=== PATIENT | female | born 1990 | race Caucasian/White ===

== ENCOUNTER 2017-07-14 11:56 | Emergency (ER) | payer OTHER ==
[~2017-07-14] VITALS: Ht 165.1 cm; Wt 117.1 kg
[2017-07-14 12:01] VITALS: TEMP 37.9; Ht 165.1 cm; Wt 117.1 kg
[2017-07-14] MEDS ORDERED: ONDANSETRON INJ 2 MG/ML 2 ML VIAL IV STA (12:26)
[2017-07-14] MEDS ORDERED: ACETAMINOPHEN 500 MG TAB PO STA (12:26)
[2017-07-14] MEDS ORDERED: SODIUM CHLORIDE 0.9% 1000ML 1,000 ML IV STA ×2 (12:26)
[2017-07-14] MEDS ORDERED: KETOROLAC TROMETHAMINE 30 MG/ML VIAL IV STA (12:26)
[2017-07-14 13:08] LABS: BASO % 0.2 %; BASO ABS # 0.02 K/uL (0-0.2); EOS ABS # 0.23 K/uL (0-0.5); HEMATOCRIT 44.4 % (37-47); IG# 0.07 K/uL (0.00-0.02); LYMPH % 14.9 %; LYMPH ABS # 1.68 K/uL (1.2-3.4); MEAN CELL VOLUME 91.9 fL (80-100); MEAN CORPUSCULAR HEMOGLOBIN 31.1 pg (25-34); MEAN CORPUSCULAR HGB CONC 33.8 g/dl (32-36); MEAN PLATELET VOLUME 10.2 fL (7.4-10.4); MONO % 5.9 %; MONO ABS # 0.66 K/uL (0.11-0.59); NEUT % 76.4 %; NEUT ABS # 8.62 K/uL (1.4-6.5); PLATELET COUNT 204 K/uL (130-400); RED CELL DISTRIBUTION WIDTH CV 13.1 % (11.5-14.5); RED CELL DISTRIBUTION WIDTH SD 43.6 fL (36.4-46.3); WHITE BLOOD COUNT 11.28 K/uL (4.8-10.8)
[2017-07-14 13:19] LABS: ALBUMIN 3.3 gm/dl (3.4-5.0); CALCIUM 8.9 mg/dl (8.5-10.1); CREATININE 0.71 mg/dl (0.60-1.20); POTASSIUM 3.5 mmol/L (3.5-5.1)
[2017-07-14 13:22] LABS: TOTAL PROTEIN 7.8 gm/dl (6.4-8.2)
[2017-07-14] MEDS ORDERED: CEFTRIAXONE SOD INJ 1 GM ADDVIAL IV STA (13:24)
--- NOTE | 2017-07-14 13:34 | DIAGNOSTIC IMAGING REPORT ---
CHEST 2 VIEWS ROUTINE CLINICAL HISTORY: BACK PAIN AND FEVER COMPARISON STUDY: No previous studies for comparison. FINDINGS: The cardiac and mediastinal contours are normal. There is no evidence of focal pulmonary consolidation. There is no evidence of failure. No pleural effusions are visualized.[ IMPRESSION: No active disease in the chest. Electronically signed by: Freddie Reynolds M.D. 07/14/2017 1:32 PM Dictated Date/Time: 07/14/2017 1:32 PM
[2017-07-14] MEDS ORDERED: OPTIRAY 320 IV PRN (13:45)
--- NOTE | 2017-07-14 14:17 | DIAGNOSTIC IMAGING REPORT ---
ABD/PELVIS IV CONTRAST ONLY CLINICAL HISTORY: 26 years-old Female presenting with EVAL PYELO/STONE, back pain, vomiting, fever, UTI. TECHNIQUE: Multidetector CT of the abdomen and pelvis was performed after the administration of intravenous contrast. IV contrast: 120 mL of Optiray 320. A dose lowering technique was used consistent with the principles of ALARA (as low as reasonably achievable). COMPARISON: None. CT DOSE (mGy.cm): The estimated cumulative dose is 1118.87 mGycm. FINDINGS: Liquid Compounder topogram: Cholecystectomy clips. Lung bases: Lungs and pleural spaces clear. Normal heart size. No pericardial or pleural effusion. Liver: Normal morphology. Density suggestive of hepatic steatosis. No focal lesion. Patent hepatic vasculature. Biliary: No intrahepatic or extrahepatic biliary ductal dilatation. Gallbladder surgically absent. Pancreas: Mild parenchymal atrophy. Spleen: Normal. Splenule is noted. Adrenal glands: Normal. Kidneys and ureters: Normal. No hydronephrosis. Ureters normal. No perinephric or periureteral fat stranding. No urothelial thickening. Bladder: Incompletely included within the [id number]. The visualized portion is grossly normal. Pelvic organs: The vagina was excluded from the opdsw-[id number]-hmsm. Uterus and ovaries normal. Bowel: The anus was excluded from the [id number]-rt-[id number]. Allowing for this, bowel is normal. The appendix is normal. No bowel obstruction. Peritoneal cavity: No free fluid or intraperitoneal gas. Lymph nodes: Few subcentimeter mesenteric lymph nodes with minimal associated fat infiltration, possibly mild mesenteric panniculitis. No pathologically enlarged lymph nodes by CT size criteria. Vasculature: Aorta and IVC patent and normal in caliber. Abdominal wall: Normal. Musculoskeletal: Normal. IMPRESSION: 1. No acute intra-abdominal pathology. The bladder was incompletely included within the csocz-ay-abhx. Allowing for this, the genitourinary tract is normal. No CT evidence of pyelonephritis. No nephrolithiasis or hydronephrosis. 2. Hepatic steatosis. Correlate with liver function tests to exclude steatohepatitis as a cause for abdominal pain. Electronically signed by: Gary Garcia M.D. 07/14/2017 2:16 PM Dictated Date/Time: 07/14/2017 2:10 PM
[2017-07-14] MEDS ORDERED: CIPR-255 PO (14:58)
[2017-07-14] MEDS ORDERED: ONDA4TAB10 SL (14:58)
--- NOTE | 2017-07-14 14:58 | EMERGENCY ROOM VISIT NOTE ---
History First contact with patient: 12:07 Chief Complaint: BACK PAIN Stated Complaint: BACK PAIN, THROWING UP History of Present Illness Patient is a 26-year-old white female with past medical history significant for asthma, depression, anxiety and acid reflux who presents the emergency department for evaluation of back pain, nausea and vomiting. Her symptoms actually started about 2 and half days ago. She woke up overnight Monday with abdominal discomfort and the urge to have a bowel movement, she tried to move her bowels but did not. She subsequently vomited. She went back to bed and when she woke up in the morning she felt completely fine, and felt well the entire day Monday. Yesterday, she woke up and had some soreness in her neck , and a headache. She thought that this was muscular from either vomiting or possibly positioning a piece and at work. She did not take any medications for her symptoms, she does note feeling chills throughout the day but did not record her temperature with a thermometer. She felt very fatigued, and slept 10 hours overnight. When she woke up this morning, she reports that her neck pain and her headache were gone, but she now has pain across her entire mid back that wraps around bilateral flanks into the right and left upper quadrants , with associated nausea. She did take her temperature at work and did not have a fever. She tried to eat lunch, but it made her more nauseous and she subsequently vomited about 5 or 6 times, which prompted her to come here to the emergency department. Last bowel movement was this morning and was normal, she denies any diarrhea, dysuria, frequency or urgency or any symptoms consistent with a UTI. She denies any upper respiratory symptoms or cough, no skin rashes. She has not taken any medications today. She is status post cholecystectomy. Review of Systems Review of systems as per HPI. All other systems reviewed were negative. 10 systems reviewed. Past Medical/Surgical History Medical Problems: (1) Acid reflux (2) Anxiety and depression (3) Asthma (4) Irregular menstruation (5) Morbid obesity with BMI of 40.0-44.9, adult (6) Seasonal allergies Surgical Problems: (1) H/O tooth extraction (2) History of cholecystectomy Electronic medical records are reviewed and summarized as above/below. See Problem List. Social History Smoking Status: Current Every Day Smoker Marital Status: in relationship Occupation Status: employed Current/Historical Medications Scheduled Ciprofloxacin Hcl (Cipro), 500 MG PO BID Scheduled PRN Ondasetron Odt (Zofran Odt), 4 MG SL Q4 PRN for Nausea or Vomiting Physical Exam Vital Signs Date Time Temp Pulse Resp B/P (MAP) Pulse Ox O2 Delivery O2 Flow Rate FiO2 07/14/17 15:23 90 160/97 96 07/14/17 13:22 93 143/86 97 Room Air 07/14/17 12:01 37.9 118 17 158/98 97 Room Air Physical Exam CONSTITUTIONAL: Patient is a morbidly obese 26-year-old white female who is awake and alert and in no acute distress. She is febrile with a temperature 37.9C orally, tachycardic with a heart rate of 118 bpm. EYES: Pupils equal, round, reactive to light and accommodation. EOMs intact without nystagmus. Sclera are anicteric. ENT: Tympanic membranes intact, with normal landmarks. External canals are clear. Oral and nasopharynx are clear. Mucous membranes are moist, no lesions , tongue and gums appear normal. NECK: Supple without lymphadenopathy. No thyromegaly. No meningeal signs. Full active range of motion without discomfort. CARDIOVASCULAR: Tachycardic rate and rhythm, with normal S1 and S2, no murmur or gallop or rub is heard. No carotid bruits auscultated. No JVD. Peripheral pulses easily palpable. RESPIRATORY: Breath sounds equal and clear to auscultation without wheezes, rales, or rhonchi heard. Full and equal chest expansion without accessory muscle use or retractions. ABDOMEN: Bowel sounds are present. Well-healed surgical scars are noted. Abdomen is obese, soft, nondistended, mildly tender in the left upper, epigastric and right upper quadrants, no guarding, rebound or rigidity. MUSCULOSKELETAL: Examination of the patient's back does not reveal any obvious deformity, no erythema, ecchymosis or signs of trauma. She has reproducible tenderness to palpation in the musculature of the mid back, bilaterally, as well as over the low thoracic spinous processes, but has full range of motion. INTEGUMENTARY: No lesions or rash, normal skin turgor. LYMPH: No lymphadenopathy. Medical Decision & Procedures ER Provider Diagnostic Interpretation: CHEST 2 VIEWS ROUTINE CLINICAL HISTORY: BACK PAIN AND FEVER COMPARISON STUDY: No previous studies for comparison. FINDINGS: The cardiac and mediastinal contours are normal. There is no evidence of focal pulmonary consolidation. There is no evidence of failure. No pleural effusions are visualized. IMPRESSION: No active disease in the chest. ABD/PELVIS IV CONTRAST ONLY CLINICAL HISTORY: 26 years-old Female presenting with EVAL PYELO/STONE, back pain, vomiting, fever, UTI. TECHNIQUE: Multidetector CT of the abdomen and pelvis was performed after the administration of intravenous contrast. IV contrast: 120 mL of Optiray 320. A dose lowering technique was used consistent with the principles of ALARA (as low as reasonably achievable). COMPARISON: None. CT DOSE (mGy.cm): The estimated cumulative dose is 1118.87 mGycm. FINDINGS: Food Sales Clerk topogram: Cholecystectomy clips. Lung bases: Lungs and pleural spaces clear. Normal heart size. No pericardial or pleural effusion. Liver: Normal morphology. Density suggestive of hepatic steatosis. No focal lesion. Patent hepatic vasculature. Biliary: No intrahepatic or extrahepatic biliary ductal dilatation. Gallbladder surgically absent. Pancreas: Mild parenchymal atrophy. Spleen: Normal. Splenule is noted. Adrenal glands: Normal. Kidneys and ureters: Normal. No hydronephrosis. Ureters normal. No perinephric or periureteral fat stranding. No urothelial thickening. Bladder: Incompletely included within the [id number]-zj-[id number]. The visualized portion is grossly normal. Pelvic organs: The vagina was excluded from the aacwo-sr-gpya. Uterus and ovaries normal. Bowel: The anus was excluded from the [id number]-cl-gfuf. Allowing for this, bowel is normal. The appendix is normal. No bowel obstruction. Peritoneal cavity: No free fluid or intraperitoneal gas. Lymph nodes: Few subcentimeter mesenteric lymph nodes with minimal associated fat infiltration, possibly mild mesenteric panniculitis. No pathologically enlarged lymph nodes by CT size criteria. Vasculature: Aorta and IVC patent and normal in caliber. Abdominal wall: Normal. Musculoskeletal: Normal. IMPRESSION: 1. No acute intra-abdominal pathology. The bladder was incompletely included within the cknkw-iz-bshm. Allowing for this, the genitourinary tract is normal. No CT evidence of pyelonephritis. No nephrolithiasis or hydronephrosis. 2. Hepatic steatosis. Correlate with liver function tests to exclude steatohepatitis as a cause for abdominal pain. Laboratory Results 07/14/17 12:48 Red Blood Count 4.83, Mean Corpuscular Volume 91.9, Mean Corpuscular Hemoglobin 31.1, Mean Corpuscular Hemoglobin Concent 33.8, Mean Platelet Volume 10.2, Neutrophils (%) (Auto) 76.4, Lymphocytes (%) (Auto) 14.9, Monocytes (%) (Auto) 5.9, Eosinophils (%) (Auto) 2.0, Basophils (%) (Auto) 0.2, Neutrophils # (Auto) 8.62, Lymphocytes # (Auto) 1.68, Monocytes # (Auto) 0.66, Eosinophils # (Auto) 0.23, Basophils # (Auto) 0.02 07/14/17 12:48 Test 07/14/17 12:05 07/14/17 12:48 07/14/17 12:57 Urine Color DK YELLOW Urine Appearance CLOUDY (CLEAR) Urine pH 5.0 (4.5-7.5) Urine Specific [place] 1.029 (1.000-1.030) Urine Protein TRACE (NEG) Urine Glucose (UA) NEG (NEG) Urine Ketones NEG (NEG) Urine Occult Blood 3+ (NEG) Urine Nitrite NEG (NEG) Urine Bilirubin NEG (NEG) Urine Urobilinogen NEG (NEG) Urine Leukocyte Esterase TRACE (NEG) Urine RBC (Auto) /hpf (0-4) Urine Hyaline Casts (Auto) /lpf (0-5) Urine RBC 5-10 /hpf (0-4) Urine WBC 5-10 /hpf (0-5) Urine Epithelial Cells >30 /lpf (0-5) Urine Bacteria 3+ (NEG) Urine Pathogenic Casts /lpf (0) Urine Yeast (Auto) (NONE PRSENT) White Blood Count 11.28 K/uL (4.8-10.8) Red Blood Count 4.83 M/uL (4.2-5.4) Hemoglobin 15.0 g/dL (12.0-16.0) Hematocrit 44.4 % (37-47) Mean Corpuscular Volume 91.9 fL (80-100) Mean Corpuscular Hemoglobin 31.1 pg (25-34) Mean Corpuscular Hemoglobin Concent 33.8 g/dl (32-36) Platelet Count 204 K/uL (130-400) Mean Platelet Volume 10.2 fL (7.4-10.4) Neutrophils (%) (Auto) 76.4 % Lymphocytes (%) (Auto) 14.9 % Monocytes (%) (Auto) 5.9 % Eosinophils (%) (Auto) 2.0 % Basophils (%) (Auto) 0.2 % Neutrophils # (Auto) 8.62 K/uL (1.4-6.5) Lymphocytes # (Auto) 1.68 K/uL (1.2-3.4) Monocytes # (Auto) 0.66 K/uL (0.11-0.59) Eosinophils # (Auto) 0.23 K/uL (0-0.5) Basophils # (Auto) 0.02 K/uL (0-0.2) RDW Standard Deviation 43.6 fL (36.4-46.3) RDW Coefficient of Variation 13.1 % (11.5-14.5) Immature Granulocyte % (Auto) 0.6 % Immature Granulocyte # (Auto) 0.07 K/uL (0.00-0.02) Anion Gap 4.0 mmol/L (3-11) Est Creatinine Clear Calc Drug Dose 156.3 ml/min Estimated GFR () 138.2 Estimated GFR (Non- 119.2 BUN/Creatinine Ratio 16.3 (10-20) Calcium Level 8.9 mg/dl (8.5-10.1) Total Bilirubin 0.4 mg/dl (0.2-1) Aspartate Amino Transf (AST/SGOT) 30 U/L (15-37) Alanine Aminotransferase (ALT/SGPT) 50 U/L (12-78) Alkaline Phosphatase 106 U/L (45-117) Total Protein 7.8 gm/dl (6.4-8.2) Albumin 3.3 gm/dl (3.4-5.0) Globulin 4.5 gm/dl (2.5-4.0) Albumin/Globulin Ratio 0.7 (0.9-2) Lipase 59 U/L (73-393) Bedside Lactic Acid Venous 1.56 mmol/L (0.90-1.70) Medications Administered Medications (Trade) Dose Ordered Sig/Shashi Route Start Time Stop Time Status Last Admin Dose Admin Sodium Chloride 1,000 ml @ 999 mls/hr Q1H1M STAT IV 07/14/17 12:26 07/14/17 13:26 DC 07/14/17 12:47 999 MLS/HR Sodium Chloride 1,000 ml @ 250 mls/hr Q4H STAT IV 07/14/17 12:26 07/14/17 16:00 DC 07/14/17 13:21 250 MLS/HR Ondansetron HCl (Zofran Inj) 4 mg NOW STAT IV 07/14/17 12:26 07/14/17 12:29 DC 07/14/17 12:47 4 MG Ketorolac Tromethamine (Toradol Inj) 30 mg NOW STAT IV 07/14/17 12:26 07/14/17 12:29 DC 07/14/17 12:48 30 MG Acetaminophen (Tylenol Tab) 1,000 mg NOW STAT PO 07/14/17 12:26 07/14/17 12:29 DC 07/14/17 12:47 1,000 MG Ceftriaxone Sodium (Rocephin Inj) 1 gm NOW STAT IV 07/14/17 13:24 07/14/17 13:26 DC 07/14/17 14:07 1 GM ED Course The patient was seen and assessed as above. IV lock was initiated and laboratory studies were collected including CBC with differential, CMP, lipase, ybdcx-[id number] lactic acid and blood cultures 2. Urinalysis was also performed. A urine test was performed and was negative. The patient was hydrated with a liter bolus of normal saline solution, then 250 cc/h. She was medicated with Zofran 4 mg IV and Toradol 30 mg IV with Tylenol 1 g by mouth. Chest x-ray was obtained, and was unremarkable. Laboratory studies noted a slightly elevated white count of 11,200 with left shift and bands. H&H is normal. Electrolytes are without significant abnormality. Renal function is normal. Liver functions are not elevated. Lipase is within normal limits. [id number]-lf-[id number] lactic acid is not elevated. Patient's urinalysis notes 3+ occult blood, leuk esterase, WBCs and RBCs with 3 + bacteria. Urine culture was ordered and is pending. Given the fever, back and flank pain and findings on urinalysis, the patient was given 1 g of ceftriaxone IV. CT scan of the abdomen and pelvis with IV contrast was ordered and was essentially unremarkable. There is no acute intra- abdominal pathology. The genitourinary tract was essentially normal without evidence for pyelonephritis by CT, no nephrolithiasis or hydronephrosis. All laboratory and diagnostic imaging studies were reviewed with attending physician, and discussed with the patient. Temperature was rechecked by myself at reassessment and was 37.1C orally. She reported that her pain is improved improved slightly, rated at a 3/10 at discharge and declined any additional medication for discomfort. Patient will be treated for a suspected early pyelonephritis. She will be placed on Cipro, was given Zofran to use as needed for nausea. Differential diagnoses also entertained included viral illness, musculoskeletal back pain, UTI, pyelonephritis, renal colic, shingles, pneumonia , sepsis, among others. The patient's tachycardia improved with analgesia, hydration and antipyretics. Blood pressure screening: Patient was found to have a slightly elevated blood pressure likely due to circumstances. I do not believe that the patient requires hypertension monitoring. Medication reconciliation: I attest that I have personally reviewed the patient' s current medication list. Medical Decision See emergency department course. Medication Reconcilliation Current Medication List: was personally reviewed by me Blood Pressure Screening Patient's blood pressure: Elevated blood pressure Blood pressure disposition: Elevated BP felt to be situational Impression Primary Impression: Fever Additional Impression: Back pain Departure Information Prescriptions Ondasetron Odt (ZOFRAN ODT) 4 Mg Tab 4 MG SL Q4 Y for Nausea or Vomiting, #20 TAB Prov: Nury Christian PA 07/14/17 Ciprofloxacin Hcl (CIPRO) 500 Mg Tab 500 MG PO BID, #20 TAB Prov: Nury Christian PA 07/14/17 Referrals No Doctor, Assigned (PCP) Patient Instructions My [facility] Additional Instructions Ciprofloxacin(Cipro) 500mg: Take one pill twice daily for 10 days for your urine infection. All antibiotics can cause diarrhea. If this occurs and you feel worse or it does not resolve in 1-2 days follow up with your doctor or return to the Emergency Department as this could be signs of serious underlying problems. If you experience any pain in your tendons/joints or any tendon injury return to the ER for re-evaluation. Any medication can cause an allergic reaction, stop the pills immediately and return to the ER for rash, hives, breathing difficulties, or swelling. Zofran(odansetron) tablets 4mg: Take one and allow it to dissolve in your mouth every four hours as needed for nausea or vomiting. Ibuprofen(Motrin, Advil) may be used for fever or pain. Use 600mg every six hours as needed. Take with food. Avoid using more than 2400mg in a 24 hour period. Do not use 2400mg per day for more than three consecutive days without physician direction. Prolonged inappropriate use can lead to stomach upset or ulcers. This is available over the counter and typically comes in 200mg tablets. (AND/OR) Acetaminophen(Tylenol) may be used for fever or pain. Use 1000mg every eight hours as needed. Avoid using more than 3000mg in a 24 hour period. This is available over the counter. Read all the package inserts or medication information paperwork provided. If you have any questions or concerns call your primary provider, pharmacist or the ER for assistance. Rest and drink plenty of fluids as tolerated. Slow sips of water or sports drinks are recommended instead of large amounts all at once. Continue current medications. Once your stomach is settled start with a clear liquid diet (jello, soup broth, etc.) and then advance as tolerated. You should avoid full, heavy meals for about 24 hrs from the time your symptoms resolved. Return to the ER immediately for worsening or persistent abdominal/back pain, vomiting, fevers, worsening of your condition, or as needed. Follow up with your primary physician within 2-3 days for a recheck of the current condition Problem Qualifiers
[2017-07-14 15:23] VITALS: BP 160/97; PULSE 90; O2SAT 96
== END 2017-07-14 15:25 | disposition home or self-care (01) ==
LOC: C.EDB 11:59 → C.EDA 15:25
DX: M54.9 Dorsalgia, unspecified (principal); R50.9 Fever, unspecified; J45.909 Unspecified asthma, uncomplicated; F32.9 Major depressive disorder, single episode, unspecified; F41.9 Anxiety disorder, unspecified; K21.9 Gastro-esophageal reflux disease without esophagitis; Z90.49 Acquired absence of other specified parts of digestive tract; E66.01 Morbid (severe) obesity due to excess calories; F17.210 Nicotine dependence, cigarettes, uncomplicated

== ENCOUNTER 2017-07-16 15:48 | Emergency (ER) | payer BC, OTHER ==
[~2017-07-16] VITALS: Ht 165.1 cm; Wt 115.5 kg
[~2017-07-16 15:48] MED LIST: CIPR-255 PO; ONDA4TAB10 SL
[2017-07-16 15:55] VITALS: Ht 165.1 cm; Wt 115.5 kg
[2017-07-16] MEDS ORDERED: KETOROLAC TROMETHAMINE 30 MG/ML VIAL IV STA (16:14)
[2017-07-16] MEDS ORDERED: ONDANSETRON INJ 2 MG/ML 2 ML VIAL IV STA (16:14)
[2017-07-16] MEDS ORDERED: SODIUM CHLORIDE 0.9% 1000ML 2,000 ML IV STA (16:14)
--- NOTE | 2017-07-16 16:35 | EMERGENCY ROOM VISIT NOTE ---
ED Visit Note First contact with patient: 16:05 CHIEF COMPLAINT: Diarrhea and bilateral flank pain HISTORY OF PRESENTING ILLNESS: This is a 26-year-old female who presents emergency department with complaint of severe diarrhea and bilateral flank pain. Patient states that she was seen in the emergency department 2 days ago for back pain and fevers and also had some vomiting. She states that she was diagnosed with a urinary tract infection and placed on ciprofloxacin for this. She had a dose of IV antibiotics in the ED, and has taken 3 doses of Cipro since her discharge. She began to have diarrhea yesterday, she states that it is watery, bright green, and she is having episodes of diarrhea every 30 minutes. She states that she feels dehydrated and has had decreased urine output and has noticed that her urine is very dark today. She states that every time that she eats or drinks something it seems to go right through her and cause diarrhea. She has had associated nausea, but denies any vomiting. She has continued to have some low-grade fevers in spite of alternating Tylenol and Advil. She reports pain in her bilateral flanks/that she describes as muscle cramps sides. She denies any abdominal pain. She does state that she has had increased bowel sounds as well. She does work at [employer], and states that it is possible she has been exposed to infections including C. difficile. She denies any known sick contacts with similar symptoms. She denies any unusual foods recently that could have caused her symptoms. She has been on the antibiotics recently for the UTI. She denies any severe headaches, vision changes, neck pain or stiffness, chest pain, shortness of breath, bloody or black stools, dysuria or urinary frequency, abnormal vaginal bleeding, or unusual rash. REVIEW OF SYSTEMS: A complete 10 point review of systems was reviewed with the patient with pertinent positives and negatives as per history of present illness. All else were negative. PAST MEDICAL HISTORY: Reviewed in chart. SOCIAL HISTORY: Lives at home. She is a current everyday smoker. She works at [employer]. ALLERGIES: No known allergies. PHYSICAL EXAM: CONSTITUTIONAL: Pleasant and cooperative. No acute distress. Moderately dehydrated, otherwise well appearing and well nourished. HEENT: Normocephalic, atraumatic. Pupils equal, round and reactive to light, EOMI. TMs normal. Pharynx normal. Dry mucous membranes. NECK: Supple, full active range of motion without discomfort. No cervical adenopathy. RESPIRATORY: Clear to auscultation bilaterally with no wheezing, crackles, rhonchi or stridor. Equal expansion bilaterally. CARDIOVASCULAR: Regular rate and rhythm with no murmurs, rubs or gallops. Normal peripheral perfusion. No edema. GASTROINTESTINAL: Soft, bilateral abdominal wall tenderness of the flanks to palpation, abdomen is otherwise nontender, nondistended. Obese. No rebound tenderness or guarding. No palpable masses or HSM. Bowel sounds present in all quadrants. No CVA tenderness bilaterally. MUSCULOSKELETAL: Full range of motion of all joints without discomfort. INTEGUMENTARY: No rash or other significant dermatologic conditions noted. NEUROLOGIC: Alert and oriented X 4 with normal affect. Normal strength and sensation in all 4 extremities. No focal neurologic deficits noted. Normal speech. Normal gait observed. ED COURSE AND MEDICAL DECISION MAKING: CC: Patient presenting with complaint of diarrhea, fevers, bilateral flank pain DIFFERENTIAL DIAGNOSIS: Includes, but not limited to gastroenteritis, gastritis , food poisoning, infectious colitis, diverticulitis, C. difficile infection, side effect of antibiotics, dehydration, electrolyte abnormality, musculoskeletal pain, UTI, pyelonephritis, among others. INTERPRETATION OF LABS: No leukocytosis, no anemia, no significant electrolyte abnormalities, normal renal function, normal liver enzymes and lipase. UA noting hematuria, negative for infection. Negative urine . MEDICATION RECONCILIATION: I attest that I have personally reviewed the patient 's current medication list. INITIAL VITAL SIGNS REVIEW: I reviewed the patient's initial vital signs and interpret them as follows: T: Afebrile; BP: Hypertensive; HR: Mildly tachycardic; RR: Within normal limits; Pulse Ox: Within normal limits on room air. Blood pressure screening: The patient was found to have an elevated blood pressure, which was felt to be situational. SUMMARY: Patient was evaluated at bedside, history and physical exam performed. Patient is alert and oriented, no acute distress but does appear uncomfortable, resting in the stretcher. Patient does appear moderately dehydrated with dry mucous membranes, and is mildly tachycardic with heart rate in the 90s. I reviewed the patient's chart from her ED visit 2 days ago, noting abdominal CT and chest x-ray that were unremarkable. She was suspected to have a UTI at that time. On review of urine culture, this appears to be mixed axel and no evidence of a true urinary tract infection. Orders were placed at bedside for labs, UA, IV fluid bolus 2 for hydration, IV Zofran for nausea, IV Toradol for pain, stool studies to evaluate for C. difficile and bacterial infection. Patient discussed with Dr. Martins, who agrees with my assessment and plan. Labs and imaging reviewed as above, unremarkable, and actually appear to be improving compared to labs from yesterday. Negative for C. difficile infection, stool culture studies pending. Patient reassessed multiple times throughout ED stay, she states that she is feeling much better after the IV fluids, and states that her pain is improved after Toradol. Given the acute onset of the patient's symptoms, I do suspect that she may have a viral gastroenteritis. She was given a dose of Imodium here and instructed to continue this at home as needed. She was also encouraged to stop the ciprofloxacin, she does not have a UTI, and this may be exacerbating the diarrhea. Patient was updated on all results and plan for discharge, she was encouraged to follow closely with her PCP. Patient was also given strict return precautions should her symptoms worsen, she verbalized understanding. Patient was discharged home in stable condition and ambulatory. Problem List Medical Problems: (1) Acid reflux Status: Chronic (2) Anxiety and depression Status: Chronic (3) Asthma Status: Chronic (4) Irregular menstruation Status: Chronic (5) Morbid obesity with BMI of 40.0-44.9, adult Status: Chronic (6) Seasonal allergies Status: Chronic Surgical Problems: (1) H/O tooth extraction Status: Resolved (2) History of cholecystectomy Status: Resolved Current/Historical Medications Scheduled Ciprofloxacin Hcl (Cipro), 500 MG PO BID Scheduled PRN Ondasetron Odt (Zofran Odt), 4 MG SL Q4 PRN for Nausea or Vomiting Allergies Coded Allergies: No Known Allergies (Unverified , 07/16/17) Vital Signs Date Time Temp Pulse Resp B/P (MAP) Pulse Ox O2 Delivery O2 Flow Rate FiO2 07/16/17 19:43 73 130/83 98 07/16/17 18:32 99 17 110/68 96 Room Air 07/16/17 18:31 37.2 07/16/17 17:19 77 07/16/17 17:18 78 20 148/72 95 07/16/17 15:55 37.7 94 17 151/90 98 Room Air Laboratory Results 07/16/17 16:56 Red Blood Count 4.78, Mean Corpuscular Volume 93.1, Mean Corpuscular Hemoglobin 30.8, Mean Corpuscular Hemoglobin Concent 33.0, Mean Platelet Volume 10.0, Neutrophils (%) (Auto) 70.1, Lymphocytes (%) (Auto) 18.9, Monocytes (%) (Auto) 7.8, Eosinophils (%) (Auto) 2.6, Basophils (%) (Auto) 0.3, Neutrophils # (Auto) 5.20, Lymphocytes # (Auto) 1.40, Monocytes # (Auto) 0.58, Eosinophils # (Auto) 0.19, Basophils # (Auto) 0.02 07/16/17 16:56 Test 07/16/17 16:05 07/16/17 16:56 Urine Color DK YELLOW Urine Appearance CLOUDY (CLEAR) Urine pH 5.0 (4.5-7.5) Urine Specific [place] 1.030 (1.000-1.030) Urine Protein 1+ (NEG) Urine Glucose (UA) NEG (NEG) Urine Ketones NEG (NEG) Urine Occult Blood 3+ (NEG) Urine Nitrite NEG (NEG) Urine Bilirubin NEG (NEG) Urine Urobilinogen NEG (NEG) Urine Leukocyte Esterase NEG (NEG) Urine WBC (Auto) 1-5 /hpf (0-5) Urine RBC (Auto) 5-10 /hpf (0-4) Urine Hyaline Casts (Auto) 10-30 /lpf (0-5) Urine Epithelial Cells (Auto) >30 /lpf (0-5) Urine Bacteria (Auto) NEG (NEG) Urine Crystals CALCIUM OXALATE (NONE Urine Pathogenic Casts /lpf (0) Urine Mucus PRESENT (NONE PRSENT) Urine Test NEG (NEG) White Blood Count 7.41 K/uL (4.8-10.8) Red Blood Count 4.78 M/uL (4.2-5.4) Hemoglobin 14.7 g/dL (12.0-16.0) Hematocrit 44.5 % (37-47) Mean Corpuscular Volume 93.1 fL (80-100) Mean Corpuscular Hemoglobin 30.8 pg (25-34) Mean Corpuscular Hemoglobin Concent 33.0 g/dl (32-36) Platelet Count 196 K/uL (130-400) Mean Platelet Volume 10.0 fL (7.4-10.4) Neutrophils (%) (Auto) 70.1 % Lymphocytes (%) (Auto) 18.9 % Monocytes (%) (Auto) 7.8 % Eosinophils (%) (Auto) 2.6 % Basophils (%) (Auto) 0.3 % Neutrophils # (Auto) 5.20 K/uL (1.4-6.5) Lymphocytes # (Auto) 1.40 K/uL (1.2-3.4) Monocytes # (Auto) 0.58 K/uL (0.11-0.59) Eosinophils # (Auto) 0.19 K/uL (0-0.5) Basophils # (Auto) 0.02 K/uL (0-0.2) RDW Standard Deviation 44.8 fL (36.4-46.3) RDW Coefficient of Variation 13.2 % (11.5-14.5) Immature Granulocyte % (Auto) 0.3 % Immature Granulocyte # (Auto) 0.02 K/uL (0.00-0.02) Anion Gap 6.0 mmol/L (3-11) Est Creatinine Clear Calc Drug Dose 139.4 ml/min Estimated GFR () 121.4 Estimated GFR (Non- 104.8 BUN/Creatinine Ratio 10.2 (10-20) Calcium Level 8.4 mg/dl (8.5-10.1) Total Bilirubin 0.3 mg/dl (0.2-1) Direct Bilirubin < 0.1 mg/dl (0-0.2) Aspartate Amino Transf (AST/SGOT) 51 U/L (15-37) Alanine Aminotransferase (ALT/SGPT) 73 U/L (12-78) Alkaline Phosphatase 107 U/L (45-117) Total Protein 7.9 gm/dl (6.4-8.2) Albumin 3.4 gm/dl (3.4-5.0) Lipase 53 U/L (73-393) Medications Administered Medications (Trade) Dose Ordered Sig/Shashi Route Start Time Stop Time Status Last Admin Dose Admin Ondansetron HCl (Zofran Inj) 4 mg NOW STAT IV 07/16/17 16:14 07/16/17 16:17 DC 07/16/17 16:33 4 MG Ketorolac Tromethamine (Toradol Inj) 15 mg NOW STAT IV 07/16/17 16:14 07/16/17 16:17 DC 07/16/17 16:33 15 MG Sodium Chloride 2,000 ml @ 999 mls/hr Q2H1M STAT IV 07/16/17 16:14 07/16/17 18:14 DC 07/16/17 16:32 999 MLS/HR Loperamide HCl (Imodium Cap) 2 mg NOW STAT PO 07/16/17 19:09 07/16/17 19:11 DC 07/16/17 19:28 2 MG Departure Information Impression Primary Impression: Diarrhea Additional Impression: Dehydration Dispostion Home / Self-Care Condition GOOD Referrals No Doctor, Assigned (PCP) Patient Instructions ED Dehydration, ED Diet [place], ED Food Poison Or Gastroenteritis, [facility] Additional Instructions You have been treated in the Emergency Department for your diarrhea, abdominal pain, and dehydration. Laboratory results have ruled out any emergent causes for your symptoms which would warrant further evaluation or admission. Stool cultures were sent to the lab today, you will be notified of any abnormal results in the next 72 hours. It is ESSENTIAL that you maintain adequate hydration with oral fluids! Some suggestions include: - Water is the IDEAL replacement for lost fluids. You should initially sip at the water to help facilitate increased intestinal absorption rate and to decrease the possibility of nausea/vomiting. - Carbohydrate/Electrolyte-Containing Drinks (i.e. Gatorade, Powerade, Pedialyte). All of these are good choices, but it is important to remember that all of these drinks contain a high concentration of sugar. - Popsicles, ice chips, and fruit juices are all other options. - My FAVORITE dehydration remedy is to mix a 1:1 solution of bottled Gatorade with bottled water. This dilution allows for a palatable flavor with added benefit of a reduction in the amount of sugar consumption. Stick with clear liquids and a bland diet until your diarrhea is improving. Than you may slowly advance back to a normal diet as tolerated. For pain control, you can use the following [id number] medicines (if >12 yo): - Regular strength (325mg/tab) Tylenol (acetaminophen) 2 tabs every 4-6 hours as needed. Do not exceed 10 tablets in a 24 hour period. Avoid taking more than 3000 mg of Tylenol per day. This includes any other sources of acetaminophen you may take on a regular basis. - Regular strength (200 mg/tab) Advil (ibuprofen) 3 tabs every 6-8 hours as needed. Do not exceed a dose of 2400 mg per day. Please follow-up with your Primary Care Provider in the next few days to reevaluate your symptoms appear Return to the emergency department for severe worsening abdominal or back pain, severe nausea/vomiting or vomiting blood, blood in your stool or urine, fevers > 101.5, severe dizziness or passing out, or any other concerns. Work Instructions Return To Work: 2 days Problem Qualifiers Primary Impression: Diarrhea Diarrhea type: presumed infectious Qualified Codes: R19.7 - Diarrhea, unspecified
[2017-07-16 17:13] LABS: BASO % 0.3 %; BASO ABS # 0.02 K/uL (0-0.2); EOS % 2.6 %; EOS ABS # 0.19 K/uL (0-0.5); HEMATOCRIT 44.5 % (37-47); HEMOGLOBIN 14.7 g/dL (12.0-16.0); IG# 0.02 K/uL (0.00-0.02); LYMPH % 18.9 %; MEAN CELL VOLUME 93.1 fL (80-100); MEAN CORPUSCULAR HEMOGLOBIN 30.8 pg (25-34); MONO % 7.8 %; MONO ABS # 0.58 K/uL (0.11-0.59); NEUT % 70.1 %; PLATELET COUNT 196 K/uL (130-400); RED CELL DISTRIBUTION WIDTH CV 13.2 % (11.5-14.5); RED CELL DISTRIBUTION WIDTH SD 44.8 fL (36.4-46.3); WHITE BLOOD COUNT 7.41 K/uL (4.8-10.8)
[2017-07-16 17:29] LABS: ALBUMIN 3.4 gm/dl (3.4-5.0); ALT/SGPT 73 U/L (12-78); AST/SGOT 51 U/L (15-37); BLOOD UREA NITROGEN 8 mg/dl (7-18); CALCIUM 8.4 mg/dl (8.5-10.1); CARBON DIOXIDE 26 mmol/L (21-32); CREATININE 0.79 mg/dl (0.60-1.20); GLUCOSE 80 mg/dl (70-99); LIPASE 53 U/L (73-393); POTASSIUM 3.4 mmol/L (3.5-5.1); SODIUM 141 mmol/L (136-145)
[2017-07-16 17:32] LABS: ALKALINE PHOSPHATASE 107 U/L (45-117); TOTAL PROTEIN 7.9 gm/dl (6.4-8.2)
[2017-07-16 18:31] VITALS: TEMP 37.2
[2017-07-16] MEDS ORDERED: LOPERAMIDE HCL 2 MG CAP PO STA (19:09)
[2017-07-16 19:43] VITALS: BP 130/83; PULSE 73; O2SAT 98
== END 2017-07-16 19:45 | disposition home or self-care (01) ==
LOC: C.EDB 15:49 → C.EDA 19:45
DX: R19.7 Diarrhea, unspecified (principal); E86.0 Dehydration; F17.210 Nicotine dependence, cigarettes, uncomplicated; K21.9 Gastro-esophageal reflux disease without esophagitis; F41.8 Other specified anxiety disorders; J45.909 Unspecified asthma, uncomplicated; E66.01 Morbid (severe) obesity due to excess calories; Z90.49 Acquired absence of other specified parts of digestive tract; Z68.41 Body mass index [BMI] 40.0-44.9, adult